=== PATIENT | female | born 1950 | race Caucasian/White ===

== ENCOUNTER 2016-05-23 11:29 | Day surgery (SDC) | payer OTHER, BC ==
[~2016-05-23] VITALS: Ht 170.2 cm; Wt 114.3 kg
[~2016-05-23 11:29] MED LIST: ASCORBIC ACID500 M3 PO; AZO1 EACH MC; CO Q-10200 MG PO; FISH OIL 1,001000 M2 PO; FLAX OIL1000 MG PO; FLOVENT 22120 INHALA IH; LO-DOSE ASPIRIN81 M2 PO; LOSARTAN POTASS25 MG PO; NEXIUM 24HR20 M1 PO; NIACIN 500 MG1 EACH PO; VENTOLIN HFA18 GM IH; VITAMIN B-122500 MCG SL; VITAMIN D35000 UNIT PO
== END 2016-05-23 19:00 | disposition home or self-care (01) ==
LOC: CATH 11:29
DX: R94.39 Abnormal result of other cardiovascular function study (principal); I25.10 Atherosclerotic heart disease of native coronary artery without angina pectoris; I10 Essential (primary) hypertension; J45.909 Unspecified asthma, uncomplicated; E78.5 Hyperlipidemia, unspecified; E66.01 Morbid (severe) obesity due to excess calories; Z68.41 Body mass index [BMI] 40.0-44.9, adult
CPT/HCPCS: C1769; C1887; J1200; J1644; J2250; J3010